=== PATIENT | male | born 1965 | race Caucasian/White ===

== ENCOUNTER 2019-07-11 20:52 | Emergency (ER) | payer OTHER, SELFPAY ==
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
[2019-07-11 20:52] VITALS: BP 157/107; PULSE 85; RESP 16; TEMP 36.6; O2SAT 97
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
[2019-07-11] MEDS: MORPHINE SULFATE 4 MG/ML INJ IV PUSH (22:14)
[2019-07-11] MEDS: LACTATED RINGERS 1,000 ML 999 ML IV CONT (22:14)
[2019-07-11 22:27] LABS: Basophils Absolute Auto 0.1 K/mm3 (0.0-0.1); Basophils Percent Auto 0.4 % (0.2-1.2); Eosinophils Absolute Auto 0.2 K/mm3 (0-0.3); Eosinophils Percent Auto 1.4 % (0-4.4); Hematocrit 43.4 % (42.0-52.0); Hemoglobin 14.2 g/dL (14.0-18.0); Immature Granulocyte Absolute 0.05 K/mm3 (0.00-0.031); Immature Granulocyte Percent A 0.3 % (0-0.5); Lymphocytes Absolute Auto 3.42 K/mm3 (0.9-3.2); Lymphocytes Percent Auto 20.6 % (18.3-44.2); Mean Corpuscular HGB Conc 32.7 g/dl (32-36); Mean Corpuscular Hemoglobin 29.2 pg (26-34); Mean Corpuscular Volume 89.3 fl (80-100); Mean Platelet Volume 9.4 fl (7.4-10.4); Monocytes Absolute Auto 1.1 K/mm3 (0.1-0.6); Monocytes Percent Auto 6.5 % (2.6-8.5); Neutrophils Absolute Auto 11.7 K/mm3 (1.3-6.7); Neutrophils Percent Auto 70.8 % (45.5-73.1); Platelet Count Result 357 k/mm3 (150-375); Red Blood Count 4.86 M/mm3 (4.6-6.20); Red Cell Distribution Width 14.3 % (11.5-14.5); White Blood Count 16.6 K/mm3 (4.5-10.0)
[2019-07-11 22:32] LABS: Add Urine Microscopic? YES; Appearance Urine Clear (Clear); Bilirubin Urine Negative (Negative); Blood Urine Negative (Negative); Color Urine Yellow (Yellow); Glucose Urine UA Negative (Negative); Ketones Urine Negative (Negative); Leukocyte Esterase Ur Negative LEU/UL (Negative); Mucus Urine Rare /lpf; Nitrate Urine Negative (Negative); Protein Urine 1+ mg/dL (Negative); Specific Grav Ur 1.019 (1.001-1.035); Urobilinogen Urine Negative mg/dL (<2.0); WBC Urine 0-3 /hpf
[2019-07-11 22:37] LABS: INR 0.9
[2019-07-11 22:38] LABS: Blood Urea Nitrogen 23 mg/dL (9-20); Calcium 9.2 mg/dL (8.4-10.2); Carbon Dioxide 30 mmol/L (22-30); Chloride 98 mmol/L (98-107); Estimated CRCL calculation 53 ml/min; Estimated Glomerular Filt Rate > 60; Glucose 80 mg/dL (75-110); Potassium 3.8 mmol/L (3.4-5.0); Sodium 139 mmol/L (137-145)
[2019-07-11 22:40] LABS: Blood Urea Nitrogen 29 mg/dL (8-26); Estimated CRCL calculation 53 ml/min; Estimated Glomerular Filt Rate > 60
[2019-07-11 22:48] VITALS: BP 147/101; PULSE 81; RESP 16; TEMP 36.3; O2SAT 100
[2019-07-12] MEDS: levETIRAcetam 1000MG/NACL100ML 1,000 MG/100 ML BAG 400 MG IVPB (00:20)
[2019-07-12] MEDS: LORAZEPAM INJ 2 MG/ML VIAL IV PUSH (00:21)
[2019-07-12 00:22] VITALS: O2SAT 97
[2019-07-12 00:32] VITALS: PULSE 77; RESP 21; O2SAT 96
[2019-07-12 00:51] VITALS: PULSE 75; RESP 20
[2019-07-12 01:00] VITALS: PULSE 72; RESP 16
--- NOTE | 2019-07-12 02:04 | PC.NURSE ---
Patient's friend, Lavern was contacted at [phone] upon patient's request. Patient requested to have her contacted to come pick him up. this nurse contacted Lavern at [phone] and she stated she will come to pick patient up. nuisance animal damage control agent aware.
[2019-07-12 02:05] VITALS: BP 121/80; PULSE 72; RESP 16; O2SAT 98
[2019-07-12 04:36] VITALS: BP 118/78; PULSE 71; RESP 18; O2SAT 95
--- NOTE | 2019-07-12 04:47 | PC.NURSE ---
This nurse contacted Lavern, patient's friend, with no answer. This nurse left a message on her voicemail that the patient is still here and is discharged, but has no way home. Patient in room resting at this time. civil drafting technician aware.
--- NOTE | 2019-07-12 05:47 | PC.NURSE ---
pt son called and stated he was getting the patient a ride. pt made aware.
--- NOTE | 2019-07-15 19:54 | PC.NURSE ---
LATE ENTRY Patient's IV Keppra finished infusing at 0035 on 07/12/2019.
== END 2019-07-12 07:45 | disposition home or self-care (01) ==
PROVIDERS: Emergency Provider Emergency Medicine
DX: S20.219A Contusion of unspecified front wall of thorax, initial encounter (principal); S40.021A Contusion of right upper arm, initial encounter; S70.312A Abrasion, left thigh, initial encounter; S70.311A Abrasion, right thigh, initial encounter; J44.9 Chronic obstructive pulmonary disease, unspecified; Y35.813A Legal intervention involving manhandling, suspect injured, initial encounter
CPT/HCPCS: 36415; 71260; 72125; 74177; 80048; 81001; 85025; 85610; 86850; 86900; 86901; 96361; 96374; 96375; 99284; J1953; J2060; J2270; J7120; L0140; Q9967

== ENCOUNTER 2021-02-27 17:51 | Emergency (ER) | payer OTHER, SELFPAY ==
[2021-02-27] VITALS (11 sets, daily range): BP systolic 145–146; BP diastolic 96–99; PULSE 66–86; RESP 16–23; TEMP 36.8; O2SAT 93–100
[2021-02-27] MEDS: SODIUM CHLORIDE 0.9% IV 1,000 ML 999 ML IV CONT (18:24)
--- NOTE | 2021-02-27 18:40 | PC.NURSE ---
ems found small baggie of crystal-like substance given to charge nurses rhonda.
[2021-02-27 18:45] LABS: Basophils Absolute Auto 0.1 K/mm3 (0.0-0.1); Basophils Percent Auto 0.5 % (0.2-1.2); Eosinophils Absolute Auto 0.2 K/mm3 (0-0.3); Eosinophils Percent Auto 1.7 % (0-4.4); Hematocrit 38.6 % (42.0-52.0); Hemoglobin 12.8 g/dL (14.0-18.0); Immature Granulocyte Absolute 0.02 K/mm3 (0.00-0.031); Immature Granulocyte Percent A 0.2 % (0-0.5); Lymphocytes Absolute Auto 1.57 K/mm3 (0.9-3.2); Lymphocytes Percent Auto 16.8 % (18.3-44.2); Mean Corpuscular HGB Conc 33.2 g/dl (32-36); Mean Corpuscular Hemoglobin 29.5 pg (26-34); Mean Corpuscular Volume 88.9 fl (80-100); Mean Platelet Volume 9.1 fl (7.4-10.4); Monocytes Absolute Auto 0.6 K/mm3 (0.1-0.6); Monocytes Percent Auto 6.4 % (2.6-8.5); Neutrophils Absolute Auto 6.9 K/mm3 (1.3-6.7); Neutrophils Percent Auto 74.4 % (45.5-73.1); Platelet Count Result 302 k/mm3 (150-375); Red Blood Count 4.34 M/mm3 (4.6-6.20); White Blood Count 9.3 K/mm3 (4.5-10.0)
[2021-02-27 18:57] LABS: Anion Gap 6 mmol/L (8-16); Blood Urea Nitrogen 22 mg/dL (9-20); Calcium 9.1 mg/dL (8.4-10.2); Carbon Dioxide 29 mmol/L (22-30); Chloride 107 mmol/L (98-107); Estimated CRCL calculation 41 ml/min; Estimated Glomerular Filt Rate 53; Glucose 94 mg/dL (65-110); Sodium 142 mmol/L (137-145)
[2021-02-27 19:55] LABS: Barbiturate Screen Urine Negative (Negative); Benzodiazepines Screen Urine Negative (Negative)
[2021-02-27 20:07] LABS: Cannabinoid Screen Urine Positive (Negative); Methadone Screen Urine Negative (Negative); Opiate Screen Urine Negative (Negative); Phencyclidine Screen Urine Negative (Negative)
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
[2021-02-27 20:35] LABS: Amphetamine Screen Urine Positive (Negative)
--- NOTE | 2021-02-27 20:44 | PC.NURSE ---
pt leaving er at this time. erp aware and asked that we pull his iv prior to his ambulating out of the department.
[2021-04-03 15:05] LABS: Reference Lab Test Result None Detected
== END 2021-02-27 20:50 | disposition home or self-care (01) ==
PROVIDERS: Emergency Provider Emergency Medicine
DX: G40.909 Epilepsy, unspecified, not intractable, without status epilepticus (principal); F15.10 Other stimulant abuse, uncomplicated; J44.9 Chronic obstructive pulmonary disease, unspecified; Z87.820 Personal history of traumatic brain injury
CPT/HCPCS: 36415; 80048; 80307; 85025; 96360; 99283; J7030

== ENCOUNTER 2023-01-01 21:55 | Emergency (ER) | payer OTHER, SELFPAY ==
--- NOTE | ~2023-01-01 | XR_ITS ---
EXAM: XR elbow RT min 3V DATE: 01/01/2023 22:45 HISTORY: pain swelling PAIN IS NON SPECIFIC . COMPARISON: None available. FINDINGS: Normal mineralization. No fracture or dislocation. No lytic or blastic lesion. Mild degene rative change in the elbow joint. Lateral condylar and olecranon enthesopathy. No erosion or perioste al change. Soft tissues within normal limits. IMPRESSION: No acute osseous finding in the right elbow. Reviewed, dictated and finalized at location K.
[2023-01-01 21:57] VITALS: BP 102/63; PULSE 81; RESP 16; TEMP 36.5; O2SAT 100
[2023-01-01 22:15] VITALS: PULSE 76; RESP 9; O2SAT 99
[2023-01-01 22:18] VITALS: BP 116/70; PULSE 78; RESP 21; TEMP 36.8; O2SAT 98
[2023-01-01 22:30] VITALS: BP 107/68
--- NOTE | 2023-01-01 22:32 | ED.GENADULT ---
HPI - General Adult General Chief complaint: Extremity Injury, Upper Stated complaint: edema Time Seen by Provider: 01/01/23 22:26 History of Present Illness HPI narrative: Patient is a 57-year-old gentleman who presents the emergency department with chief complaint of right elbow pain. Patient reports that he was out working in the yard and may have gotten a couple of scrapes or insect bites at his right elbow area the patient reports the areas become red swollen and is tender to touch patient reports that the skin in that area is warm and red. Patient reports that has not had systemic fever denies being febrile at home reports that he has history of seizures and feels as though he is about to have a seizure. Related Data Home Medications Medication Instructions Recorded Confirmed citalopram 20 mg tablet mg 02/27/21 levetiracetam 500 mg tablet PO 02/27/21 nortriptyline 10 mg capsule 02/27/21 nortriptyline 10 mg capsule 02/27/21 Allergies Allergy/AdvReac Type Severity Reaction Status Date / Time morphine Allergy Mild SKIN Verified 02/27/21 18:09 RED/ITCHY Review of Systems Review of Systems: A 10 system review of systems was completed on the patient and is negative except for what is stated in the HPI. Nursing and ancillary documentation was reviewed. [facility] Past Medical History Medical History COPD (chronic obstructive pulmonary disease) History of seizure disorder Pneumothorax Traumatic brain injury Surgical History Surgical History Surgical history unknown Social History Social History Smoking status: Unknown if ever smoked Exam Narrative: GENERAL: Well-appearing, well-nourished, and in no acute distress. HEAD: Normocephalic, atraumatic. EYES: PERRLA and EOMI. ENT: Nares clear, no rhinorrhea or epistaxis. Mucous membranes moist. NECK: Supple. CHEST: Clear to auscultation. No respiratory distress. HEART: Regular rate and rhythm. No murmur heard. Normal peripheral pulses. ABDOMEN: Soft, nontender, nondistended, normal active bowel sounds. EXTREMITIES: Normal range of motion in all extremities except for right elbow. There is redness present of the elbow area. There is no fluctuance there is no crepitance there is no necrotic tissue. There is no purulent drainage. No edema. SKIN: Warm, dry, no rash. NEURO: No focal deficits. Alert and oriented x3. PSYCH: Normal mood and affect. Course Vital Signs Vital signs: Vital Signs Temperature 36.5 C 01/01/23 21:57 Pulse Rate 81 01/01/23 21:57 Respiratory Rate 16 01/01/23 21:57 Blood Pressure 102/63 01/01/23 21:57 Pulse Oximetry 100 01/01/23 21:57 Oxygen Delivery Room Air 01/01/23 21:57 Temperature 36.8 C 01/01/23 22:18 Pulse Rate 79 01/01/23 23:00 Respiratory Rate 21 H 01/01/23 23:00 Blood Pressure 107/68 01/01/23 22:30 Pulse Oximetry 100 01/01/23 23:00 Oxygen Delivery Room Air 01/01/23 22:18 Medical Decision Making [facility] Narrative Medical decision making narrative: Differential diagnosis includes cellulitis, abscess, bursitis, joint infection. Plan: X-rays of the right elbow showed no evidence of joint effusion Laboratory studies showed a white count of 20.5 with platelet count of 430 20 electrolytes showed a sodium of 135 potassium chloride CO2 was within normal limits renal function showed a BUN of 20 and a creatinine 1.3 glucose was 112 lactic acid is 0.9 liver enzymes are within normal limits C-reactive protein 16.9 procalcitonin 0 normal troponin The patient was given a dose of clindamycin in the emergency department The plan was to admit the patient to the hospital the patient was offered admission the patient stated that he had animals at home that need to be cared for and would like
[2023-01-01 22:46] VITALS: PULSE 78; RESP 23
[2023-01-01 23:00] VITALS: PULSE 79; RESP 21; O2SAT 100
[2023-01-01] MEDS: SODIUM CHLORIDE 0.9% IV 1,000 ML 999 ML IV CONT (23:08)
[2023-01-01] MEDS: CLINDAMYCIN 600 MG/D5W 50 ML 600 MG/50 ML PIGGYBACK 100 MG IVPB (23:11)
[2023-01-01 23:16] LABS: Basophils Absolute Auto 0.1 K/mm3 (0.0-0.1); Basophils Percent Auto 0.3 % (0.2-1.2); Eosinophils Absolute Auto 0.1 K/mm3 (0-0.3); Eosinophils Percent Auto 0.7 % (0-4.4); Hematocrit 35.6 % (42.0-52.0); Hemoglobin 11.6 g/dL (14.0-18.0); Immature Granulocyte Absolute 0.12 K/mm3 (0.00-0.031); Immature Granulocyte Percent A 0.6 % (0-0.5); Lymphocytes Absolute Auto 1.79 K/mm3 (0.9-3.2); Lymphocytes Percent Auto 8.7 % (18.3-44.2); Mean Corpuscular HGB Conc 32.6 g/dl (32-36); Mean Corpuscular Hemoglobin 29.8 pg (26-34); Mean Corpuscular Volume 91.5 fl (80-100); Mean Platelet Volume 8.7 fl (7.4-10.4); Monocytes Absolute Auto 1.4 K/mm3 (0.1-0.6); Monocytes Percent Auto 6.9 % (2.6-8.5); Neutrophils Percent Auto 82.8 % (45.5-73.1); Platelet Count Result 413 k/mm3 (150-375); Red Blood Count 3.89 M/mm3 (4.6-6.20); White Blood Count 20.5 K/mm3 (4.5-10.0)
--- NOTE | 2023-01-01 23:18 | PC.NURSE ---
pt care given to ASHLEY Box. all questions answered.
[2023-01-01 23:27] LABS: Lactic Acid Reflex 0.9 mmol/L (0.7-2.0)
[2023-01-01 23:28] LABS: Alanine Aminotransferase 24 U/L (6-50); Albumin Level 3.6 g/dL (3.5-5.1); Alkaline Phosphatase 126 U/L (38-126); Anion Gap 6 mmol/L (8-16); Aspartate Amino Transferase 22 U/L (17-59); Bilirubin,Total 0.4 mg/dL (0.2-1.3); Blood Urea Nitrogen 20 mg/dL (9-20); Calcium 8.9 mg/dL (8.4-10.2); Carbon Dioxide 26 mmol/L (22-30); Chloride 103 mmol/L (98-107); Estimated CRCL calculation 49 ml/min; Estimated Glomerular Filt Rate 57; Glucose 112 mg/dL (65-110); Sodium 135 mmol/L (137-145)
[2023-01-01 23:43] LABS: CRP 16.9 mg/dL (<1.0)
[2023-01-02 00:02] LABS: Procalcitonin 0.1 ng/mL
[2023-01-02 00:07] LABS: Erythrocyte Sedimentation Rate 78 mm/hr (0-20)
[2023-01-02 00:50] VITALS: BP 107/64; PULSE 75; RESP 16; O2SAT 98
== END 2023-01-02 00:53 | disposition home or self-care (01) ==
PROVIDERS: Emergency Provider Emergency Medicine; PCP Internal Medicine
DX: L03.113 Cellulitis of right upper limb (principal); D72.829 Elevated white blood cell count, unspecified; J44.9 Chronic obstructive pulmonary disease, unspecified
CPT/HCPCS: 36415; 73080; 80053; 83605; 84145; 85025; 85652; 86140; 87040; 96361; 96365; 99284; J7030